=== PATIENT | male | born 1945 | race Caucasian/White ===

== ENCOUNTER 2017-09-08 07:02 | Day surgery (SDC) | payer OTHER, MEDICARE ==
[2017-09-08] MEDS ORDERED: Lactated Ringers 1,000 ML IV SCH (07:30)
[2017-09-08] MEDS ORDERED: fentaNYL 100 MCG/2 ML SDV ONE (08:18)
[2017-09-08] MEDS ORDERED: Midazolam 1 MG/ML 2 ML SDV ONE (08:18)
[2017-09-08] MEDS ORDERED: Propofol 200 MG/20 ML SDV ONE (08:18)
[2017-09-08] MEDS ORDERED: Naloxone 0.4 MG/ML SDV ONE (08:59)
--- NOTE | 2017-09-08 09:54 | OR ---
DATE OF PROCEDURE: 09/08/2017 PREOPERATIVE DIAGNOSES: 1. History of colon polyps. 2. Anemia. POSTOPERATIVE DIAGNOSES: 1. Gastritis with small superficial gastric ulcers. 2. Duodenitis. 3. Colonic diverticulosis. 4. History of colon polyps. 5. Anemia. PROCEDURE: Esophagogastroduodenoscopy with gastric biopsies for CLOtest and tissue sent for pathology to look for Helicobacter pylori. Colonoscopy to the cecum. SURGEON: Jasiel Lakhani MD. ANESTHESIA: IV anesthesia with monitored anesthesia care. INDICATIONS: This 72-year-old white male is referred for upper and lower endoscopy. The indications are anemia and a history of colon polyps. His last colonoscopic exam was done a few years ago. I counseled him for upper and lower endoscopy with possible biopsy and/or polypectomy including risks and alternatives, and he gave his informed consent to proceed. PROCEDURE IN DETAIL: The patient was placed in the left lateral decubitus position. IV anesthesia was administered by the Anesthesia Service. Time-out was held. The flexible video Olympus upper endoscope was passed through his mouth, down his esophagus, and into his stomach. The scope was easily passed through the pylorus into the duodenum reaching its third portion. The scope was then slowly withdrawn, examining the mucosa throughout. The distal duodenum appeared unremarkable. The scope was brought up into the duodenal bulb, there was inflammation here consistent with duodenitis. No ulcers were seen here. The scope was brought up through the pylorus into the antrum. There was diffuse erythematous changes consistent with gastritis. Looking a little proximally in the stomach body, there were some superficial ulcers present. We obtained gastric biopsies for CLOtest and for pathology to look for Helicobacter pylori. The scope was retroflexed. The most proximal stomach appeared unremarkable. The scope was straightened and brought up to the GE junction. This was unremarkable. The scope was brought up through the unremarkable appearing esophagus and removed. Next a rectal exam was performed, which was unremarkable. The flexible video Olympus colonoscope was introduced through his anus, up his rectum, and out his colon all way to the cecum. En route, we saw several left-sided diverticula. There was no bleeding or inflammation associated with them. Also in the right we saw a few diverticula. Again no bleeding or inflammation associated with them. Once the cecum was reached, the scope was slowly withdrawn, examining the mucosa throughout. No additional mucosal abnormalities were noted. The scope was retroflexed in the rectum with the distal rectum appearing unremarkable. The scope was straightened and removed. He tolerated the procedure well. Jasiel Lakhani MD /[id number] MTDD
== END 2017-09-08 10:30 | disposition home or self-care (01) ==
LOC: JP.SDS 07:02
PROVIDERS: ATTEND Surgery
DX: Z12.11 Encounter for screening for malignant neoplasm of colon (principal); K29.50 Unspecified chronic gastritis without bleeding; K57.30 Diverticulosis of large intestine without perforation or abscess without bleeding; I10 Essential (primary) hypertension; E78.00 Pure hypercholesterolemia, unspecified; K52.9 Noninfective gastroenteritis and colitis, unspecified; Z86.010 Personal history of colon polyps; Z88.8 Allergy status to other drugs, medicaments and biological substances; Z98.890 Other specified postprocedural states
CPT/HCPCS: 43239; 45378; 87081; 88305; 88342; J2250; J2310; J2704; J3010; J7120

== ENCOUNTER 2022-12-29 17:02 | Emergency (ER) | payer MEDICARE ==
[2022-12-29 17:45] LABS: ESTIMATED GFR 70 mL/min (>60)
[2022-12-29 17:47] LABS: TROPONIN I HIGH SENSITIVITY 142.6 pg/mL (<=60.3)
[2022-12-29] MEDS ORDERED: Nitroglycerin 0.4 MG Tab.SL SL PRN (17:48)
[2022-12-29] MEDS ORDERED: Aspirin 81 MG Tab.Chew PO ONE (17:48)
== END 2022-12-29 19:52 ==
LOC: JP.ED 17:02
DX: I24.9 Acute ischemic heart disease, unspecified (principal); I10 Essential (primary) hypertension; Z87.891 Personal history of nicotine dependence; Z88.8 Allergy status to other drugs, medicaments and biological substances; Z79.899 Other long term (current) drug therapy
CPT/HCPCS: 36415; 80053; 81001; 84484; 85025; 85610; 85730; 87086; 93005; 93010; 99285; A9270

== ENCOUNTER 2023-01-06 21:32 | Emergency (ER) | payer MEDICARE ==
[2023-01-06] MEDS ORDERED: Sodium Chloride 0.9% 10 ML Syringe FLUSH PRN ×2 (23:00→23:28)
[2023-01-06] MEDS ORDERED: Sodium Chloride 0.9% 1,000 ML IV SCH (23:15)
[2023-01-06] MEDS ORDERED: Amiodarone 150 MG/3 ML SDV IVPUSH ONE (23:28)
[2023-01-06] MEDS: Apixaban 5 MG Tab PO SCH (23:51)
[2023-01-07] MEDS ORDERED: Dextrose 5% in Water 250 ML ONE (00:18)
[2023-01-07] MEDS ORDERED: VALSARTAN 160 MG PO SCH (09:00)
[2023-01-07] MEDS ORDERED: LABETALOL HCL 200 MG PO SCH (09:00)
[2023-01-07] MEDS ORDERED: Labetalol 100 MG Tab PO SCH ×2 (09:35→10:00)
[2023-01-07] MEDS: Apixaban 5 MG Tab PO SCH (09:45)
[2023-01-07] MEDS ORDERED: Sodium Chloride 0.9% 1,000 ML IV SCH (11:30)
== END 2023-01-07 14:40 | disposition left against medical advice (07) ==
LOC: JP.ED 21:32
DX: Z48.01 Encounter for change or removal of surgical wound dressing (principal); I48.91 Unspecified atrial fibrillation; I10 Essential (primary) hypertension; Z95.1 Presence of aortocoronary bypass graft; Z88.8 Allergy status to other drugs, medicaments and biological substances; Z79.899 Other long term (current) drug therapy
CPT/HCPCS: 36415; 71046; 71046-26; 80048; 83605; 85025; 93005; 93010; 96365; 96366; 96374; 99284; 99284-25; A9270-GY; J0282; J3490; J7030; J7060

== ENCOUNTER 2024-03-16 06:55 | Day surgery (SDC) | payer MEDICARE ==
[2024-03-16] MEDS: Sodium Chloride 0.9% 10 ML Syringe FLUSH PRN (07:36)
== END 2024-03-16 08:45 | disposition home or self-care (01) ==
LOC: JP.SDS 06:55
PROVIDERS: ATTEND Ophthalmology
DX: H25.12 Age-related nuclear cataract, left eye (principal); H57.03 Miosis
CPT/HCPCS: 66982; J3490; V2632